=== PATIENT | female | born 1960 | race Caucasian/White ===

== ENCOUNTER 2020-10-20 08:40 | Outpatient (CLI) | payer BC, SELFPAY ==
[2020-10-20 09:10] LABS: Hematocrit 40.4 % (37.0-47.0); Hemoglobin 13.5 g/dL (12.0-15.0); Mean Corpuscular HGB Conc 33.4 g/dl (32-36); Mean Corpuscular Hemoglobin 30.1 pg (26-34); Mean Platelet Volume 9.1 fl (7.4-10.4); Platelet Count Result 289 k/mm3 (150-375); Red Blood Count 4.49 M/mm3 (4.2-5.4); Red Cell Distribution Width 12.2 % (11.5-14.5); White Blood Count 4.3 K/mm3 (4.5-10.0)
[2020-10-20 09:25] LABS: Alanine Aminotransferase 23 U/L (4-35); Albumin Level 4.8 g/dL (3.5-5.1); Alkaline Phosphatase 60 U/L (38-126); Anion Gap 8 mmol/L (8-16); Aspartate Amino Transferase 27 U/L (14-36); Bilirubin,Total 0.6 mg/dL (0.2-1.3); Blood Urea Nitrogen 17 mg/dL (7-17); Calcium 9.7 mg/dL (8.4-10.2); Carbon Dioxide 30 mmol/L (22-30); Chloride 100 mmol/L (98-107); Cholesterol 232 mg/dL (0-200); Estimated Glomerular Filt Rate > 60; Glucose 103 mg/dL (65-105); HDL Direct 51 mg/dL; Potassium 4.3 mmol/L (3.4-5.0); Sodium 138 mmol/L (137-145); Triglycerides 191 mg/dL (<150)
[2020-10-20 09:36] LABS: LDL Cholesterol Direct 120 mg/dL
[2020-10-20 10:04] LABS: Free T4 Free Thyroxine 1.22 ng/mL (0.78-2.19)
[2020-10-20 10:27] LABS: Folic Acid 7.4 ng/mL (2.76->20)
== END 2020-10-20 08:41 | disposition home or self-care (01) ==
PROVIDERS: PCP Internal Medicine; Visit Provider Physician Assistant
DX: Z00.00 Encounter for general adult medical examination without abnormal findings (principal); E03.9 Hypothyroidism, unspecified
CPT/HCPCS: 36415; 80053; 80061; 82607; 82746; 84439; 84443; 85027

== ENCOUNTER 2021-06-08 07:40 | Outpatient (CLI) | payer BC, SELFPAY ==
[2021-06-08 08:33] LABS: Alanine Aminotransferase 31 U/L (4-35); Albumin Level 4.9 g/dL (3.5-5.1); Alkaline Phosphatase 65 U/L (38-126); Anion Gap 11 mmol/L (8-16); Aspartate Amino Transferase 33 U/L (14-36); Bilirubin,Total 0.6 mg/dL (0.2-1.3); Blood Urea Nitrogen 17 mg/dL (7-17); Calcium 9.6 mg/dL (8.4-10.2); Carbon Dioxide 27 mmol/L (22-30); Chloride 99 mmol/L (98-107); Cholesterol 243 mg/dL (0-200); Estimated Glomerular Filt Rate > 60; Glucose 98 mg/dL (65-105); HDL Direct 75 mg/dL; Potassium 4.4 mmol/L (3.4-5.0); Sodium 137 mmol/L (137-145); Triglycerides 129 mg/dL (<150)
[2021-06-08 08:44] LABS: LDL Cholesterol Direct 100 mg/dL
== END 2021-06-08 07:41 | disposition home or self-care (01) ==
LOC: ANHLAB 07:41
PROVIDERS: PCP Internal Medicine; Visit Provider Internal Medicine
DX: E78.5 Hyperlipidemia, unspecified (principal)
CPT/HCPCS: 36415; 80053; 80061

== ENCOUNTER 2021-08-17 02:20 | Day surgery (SDC) | payer BC, SELFPAY ==
[2021-08-02 14:09] VITALS: BMI 22.1
[2021-08-17 06:57] VITALS: BP 135/81; PULSE 106; RESP 16; TEMP 37; O2SAT 100; BMI 23.8
[2021-08-17] MEDS: LACTATED RINGERS 1,000 ML 150 ML IV CONT (07:10)
--- NOTE | 2021-08-17 07:19 | WPDGICN ---
Assessment and Plan Assessment and plan (1) Gastroesophageal reflux disease: Code(s): K21.9 - Gastro-esophageal reflux disease without esophagitis Status: Acute Assessment and Plan: Patient has a longstanding history of GE reflux disease currently felt to be stable on omeprazole. Anti-reflux measures are reinforced to the patient today. EGD will be performed because of the chronicity of her symptoms. (2) Dysphagia: Code(s): R13.10 - Dysphagia, unspecified Status: Acute Assessment and Plan: Patient is notice some difficulty swallowing. Likely related to her GE reflux disease this will be assessed at the time of EGD. (3) History of colon polyps: Code(s): Z86.010 - Personal history of colonic polyps Status: Acute Assessment and Plan: Patient has a history of colon polyps in 2014. Plan is for surveillance colonoscopy at this time. Patient will be a little bit higher risk of recurrent colon polyps because of this. Follow-up colonoscopy is suggested about 5 year intervals. GI Consult Note Consult date/time: 08/17/21 07:19 HPI: Yulia Villagomez is a 61 year old female Presents for screening colonoscopy. She also has difficulty swallowing. Patient reports last colonoscopy [address] Hensley. At that time patient was found to have colon polyps. She reports that her current weight appetite and bowel movement so are normal. She denies abdominal pain. Follow-up colonoscopy is to be performed. Patient also has a longstanding history of GE reflux disease. She complains of substernal heartburn. She notes occasional slow passage of food predominantly more solid foods. She denies significant abdominal pain. She notices difficulty promptly if missing her dose medications. Currently she feels fairly stable on omeprazole 20mg p.o. daily has taken this for some time. An EGD will be performed today. Review of Systems Review of Systems: All systems reviewed & are unremarkable except as noted in HPI and below [facility] Family History Family History Mother Family history of elevated blood lipids Father Cerebrovascular accident, Onset Age: 78 Patient's father is Social History Social History Smoking status: Never smoker Second hand tobacco smoke exposure: No Alcohol intake: current Drinks per week: 3 Living arrangements: with family Spiritual care concerns: No Meds Home Medications and Allergies Home Medications Medication Instructions Recorded Confirmed Type lovastatin 10 mg tablet 10 mg PO QPM #90 tablet 11/10/20 08/02/21 Rx lisinopril 10 mg tablet 10 mg PO DAILY #90 tablet 06/12/21 08/02/21 Rx levothyroxine 50 mcg tablet 50 mcg PO DAILY #90 tablet 07/01/21 08/02/21 Rx omeprazole 20 mg capsule,delayed 20 mg PO DAILY #90 cap 07/29/21 08/02/21 Rx release venlafaxine 75 mg PO DAILY 08/02/21 08/02/21 History Allergies Allergy/AdvReac Type Severity Reaction Status Date / Time No Known Allergies Allergy Unknown Verified 08/17/21 06:56 NKFA Allergy Unknown Unknown Uncoded 08/02/21 14:07 Vital Signs Vital Signs - 24 hr 08/17/21 06:57 Temperature 98.6 F Pulse Rate 106 H Respiratory Rate 16 Blood Pressure 135/81 Pulse Oximetry 100 Exam Narrative: Physical exam reveals patient to be alert. Vital signs stable. HEENT exam is unremarkable. Patient is anicteric. Lungs are clear to auscultation and percussion. Heart is without murmur or extra sounds. Abdominal exam bowel sounds are present soft nontender with no organomegaly. Digital external rectal exam is normal.
--- NOTE | 2021-08-17 07:43 | WPDANESEPPF ---
Anes - Initial Pre Proc Eval Procedure: Operation Date: 08/17/21 08:00 Proposed Procedures p Esophagogastroduodenoscopy & Screening Colonoscopy - Charly Rivera MD Date/Time: 08/17/21 07:43 Surgeon: Charly Rivera MD Pre Op Diagnosis: dysphagia, neoplasm screening Patient Data Age: 61 Gender: F Height: 1.75 m Weight: 73 kg Last Vital Signs Temp 98.6 F 08/17/21 06:57 Pulse 106 H 08/17/21 06:57 Resp 16 08/17/21 06:57 BP 135/81 08/17/21 06:57 Pulse Ox 100 08/17/21 06:57 Allergies Allergy/AdvReac Type Severity Reaction Status Date / Time No Known Allergies Allergy Unknown Verified 08/17/21 06:56 NKFA Allergy Unknown Unknown Uncoded 08/02/21 14:07 Home Medications Medication Instructions Recorded Confirmed Type lovastatin 10 mg tablet 10 mg PO QPM #90 tablet 11/10/20 08/02/21 Rx lisinopril 10 mg tablet 10 mg PO DAILY #90 tablet 06/12/21 08/02/21 Rx levothyroxine 50 mcg tablet 50 mcg PO DAILY #90 tablet 07/01/21 08/02/21 Rx omeprazole 20 mg capsule,delayed 20 mg PO DAILY #90 cap 07/29/21 08/02/21 Rx release venlafaxine 75 mg PO DAILY 08/02/21 08/02/21 History Patient hx anesthesia problems: none Family hx anesthesia problems: none PMFSH Past Medical History Medical History (Updated 08/17/21 @ 07:43 by Ez Murray MD) Essential hypertension Gastroesophageal reflux disease Hyperlipidemia Hypothyroidism Family History Family History Mother Family history of elevated blood lipids Father Cerebrovascular accident, Onset Age: 78 Patient's father is Social History Social History Smoking status: Never smoker Second hand tobacco smoke exposure: No Alcohol intake: current Drinks per week: 3 Living arrangements: with family Spiritual care concerns: No Anes - Eval Final PreProcedure Day of Procedure 08/17/21 07:43 Patient weight: overweight Heart: regular rate and rhythm Lungs: clear to auscultation Airway: Mallampati scale class II Neurological: alert and oriented Last oral intake: >/= 8 hours ASA classification: III Emergent: no Anesthetic plan: proceed Anesthesia type and monitoring: general GIVS and standard monitoring Informed Consent: The patient's anesthetic plan and its attendant risks and benefits were discussed with the patient/family/POA. Questions were solicited and answers provided to the satisfaction of the patient/family/POA.
[2021-08-17 08:30] VITALS: BP 110/64; PULSE 89; RESP 18; O2SAT 100
[2021-08-17 08:40] VITALS: BP 110/66; PULSE 85; RESP 22; O2SAT 100
[2021-08-17 08:50] VITALS: BP 128/72; PULSE 84; RESP 22; O2SAT 100
[2021-08-17 08:58] VITALS: BP 126/73; PULSE 82; RESP 18; O2SAT 100
== END 2021-08-17 09:03 | disposition home or self-care (01) ==
PROVIDERS: PCP Internal Medicine; Visit Provider Internal Medicine Gastroenterology
PROC: 0DJ08ZZ Inspection of Upper Intestinal Tract, Via Natural or Artificial Opening Endoscopic (ICD-10-PCS; CPT 43235; principal; 2021-08-17 08:00)
DX: Z12.11 Encounter for screening for malignant neoplasm of colon (principal); D12.5 Benign neoplasm of sigmoid colon; R13.10 Dysphagia, unspecified; K21.9 Gastro-esophageal reflux disease without esophagitis; I10 Essential (primary) hypertension; E78.5 Hyperlipidemia, unspecified; E03.9 Hypothyroidism, unspecified
CPT/HCPCS: 45385; 43235; 43450; 88305; J2001; J2704; J7120

== ENCOUNTER 2022-02-10 16:28 | Emergency (ER) | payer BC, SELFPAY ==
[2022-02-10] VITALS (15 sets, daily range): BP systolic 120–178; BP diastolic 67–94; PULSE 79–138; RESP 12–20; TEMP 36.8–37.1; O2SAT 87–100
--- NOTE | ~2022-02-10 | XR_ITS ---
EXAMINATION: XR elbow LT 2V DATE: 02/10/2022 17:16 INDICATION: Left elbow pain, deformity and inability to straighten the elbow post fall TECHNIQUE: Anteroposterior and lateral views of the left elbow were obtained. COMPARISON: None. FINDINGS: Intra-articular transverse fracture across the base of the olecranon. The proximal olecranon fragment is positioned along the posterior articular surface of the trochlea has with the arm in full extensi on. The radius and more distal ulna are again 115 degrees of flexion and are also anterior subluxed r elative to the articular surface of the capitellum and trochlea with widening of the anterior joint s paces. There also appears to be medial subluxation, potentially dislocation of the radius and ulna on the frontal projection. No other fractures identified. Prominent soft tissue swelling about the elbo w. IMPRESSION: 1. Intra-articular fracture olecranon with displacement and subluxation cannot dislocation at both th e radius and more distal ulna at the elbow joint. Reviewed, dictated and finalized at location A. IMPRESSION: 1. Intra-articular fracture olecranon with displacement and subluxation cannot dislocation at both the radius and more distal ulna at the elbow joint.
--- NOTE | ~2022-02-10 | XR_ITS ---
EXAMINATION: XR pelvis 1-2V DATE: 02/10/2022 17:16 INDICATION: Fall with pelvic pain TECHNIQUE: An anteroposterior view of the pelvis was obtained. COMPARISON: 07/17/2004 FINDINGS: Minimally displaced fracture of the left superior and inferior pubic rami. Alignment remains near-dafne tomic. No other fractures identified. Bilateral hip joint spaces appear normal. Mild bilateral sacroi liac osteoarthritis. Sacral arches are intact. A few phleboliths in the pelvis. IMPRESSION: 1. Minimally displaced fractures of the left superior and inferior pubic rami. Reviewed, dictated and finalized at location A.
--- NOTE | ~2022-02-10 | XR_ITS ---
EXAMINATION: XR elbow LT min 3V DATE: 02/10/2022 20:31 INDICATION: Postreduction left elbow fracture TECHNIQUE: Anteroposterior and lateral views of the left elbow were obtained. COMPARISON: 02/10/2022 FINDINGS: Again seen is an intra-articular transverse fracture across the base of the olecranon. There is also a nondisplaced fracture extra-articular fracture across the neck of the proximal radius. The volar escobar bluxation of the radius and main distal ulnar fragment has been reduced to near-anatomic alignment. T here is persistent 2.5 cm proximal rotational distraction of the proximal olecranon fragment along th e articular surface of the trochlea with fragment positioned in the olecranon fossa as would be expec rhonda with the elbow in complete extension despite the forearm being in and 105 degrees of flexion. Sof t tissue swelling about the proximal forearm and elbow. IMPRESSION: 1. Nondisplaced extra articular fracture at the neck of the proximal left radius. 2. Intra-articular fracture across the base of the olecranon process with persistent distraction. 3. Successful reduction of the previously subluxed radiocapitellar articulation and the articulating between the trochlea and the main distal ulnar fragment. Reviewed, dictated and finalized at location A. IMPRESSION: 1. Nondisplaced extra articular fracture at the neck of the proximal left radiu s. 2. Intra-articular fracture across the base of the olecranon process with persi stent distraction. 3. Successful reduction of the previously subluxed radiocapitellar articulation and the articulating between the trochlea and the main distal ulnar fragment.
--- NOTE | ~2022-02-10 | CT_ITS ---
EXAMINATION: CT abdomen pelvis w con DATE: 02/10/2022 18:58 INDICATION: Lower abdominal pain post fall TECHNIQUE: Computed tomography (CT) of the abdomen and pelvis was performed with 100 mL Omnipaque-350 intravenous contrast. Automated exposure control and iterative reconstruction technique were employe d. The dose-length product was 656.17 mGy-cm. COMPARISON: None FINDINGS: Mild dependent atelectasis in the bilateral lower lobes. Heart size is normal. No pericardial or pleu ral effusion. Bilateral breast implants. Liver, gallbladder, spleen, pancreas, bilateral adrenal glan ds and kidneys are normal. Davidson catheter in the decompressed bladder. Bowels are unremarkable with n o wall thickening or obstruction. The appendix is not visualized. No pericecal inflammatory change to suggest acute appendicitis. The uterus is not identified and has likely been surgically resected. No free intraperitoneal gas or fluid. Bilateral adnexa are unremarkable. No free intraperitoneal gas or fluid. No pathologically enlarged abdominal or pelvic lymphadenopathy. Nondisplaced fracture of the left inferior pubic ramus. Mildly displaced fracture of the left superior pubic ramus. No other fract ures identified. IMPRESSION: 1. Left superior and inferior pubic rami fractures. 2. No acute intra-abdominal/pelvic process. Reviewed, dictated and finalized at location A.
--- NOTE | 2022-02-10 17:52 | WC.ED.TRAUMA ---
HPI - Trauma General Chief Complaint: Extremity Injury, Upper <Gagandeep Martin APRN - Last Filed: 02/10/22 20:38> Stated Complaint: Fall <Gagandeep Martin APRN - Last Filed: 02/10/22 20:38> Time Seen by Provider: 02/10/22 17:08 <Gagandeep Martin APRN - Last Filed: 02/10/22 20:38> History of Present Illness HPI narrative: 62-year-old female presents the emergency room after a mechanical fall while at home. Patient states that she slipped and fell landing on her left elbow and left hip. Patient states that she was unable to walk following the incident, and noticed a of obvious bony abnormality to the left elbow. <Gagandeep Martin APRN - Last Filed: 02/10/22 20:38> Related Data Home Medications: Home Medications Medication Instructions Recorded Confirmed venlafaxine 75 mg PO DAILY 08/02/21 08/02/21 <Gagandeep Martin APRN - Last Filed: 02/10/22 20:38> Allergies/Adverse Reactions: Allergies Allergy/AdvReac Type Severity Reaction Status Date / Time No Known Allergies Allergy Unknown Verified 02/10/22 16:49 NKFA Allergy Unknown Unknown Uncoded 08/02/21 14:07 <Gagandeep Martin APRN - Last Filed: 02/10/22 20:38> Review of Systems Review of Systems: CONSTITUTIONAL: Denies fever, chills, or sweats. EYES: Denies visual changes, redness, or discharge. ENT: Denies rhinorrhea, congestion, sore throat, or otalgia. CARDIOVASCULAR: Denies chest pain, palpitations, or edema. RESPIRATORY: Denies cough or dyspnea. GASTROINTESTINAL: Reports lower abdominal pain GENITOURINARY: Denies dysuria or hematuria. SKIN: Denies rash or itching. MUSCULOSKELETAL: Pain to the symphysis pubis and left elbow NEUROLOGIC: Denies headache, numbness, dizziness, or weakness. PSYCHIATRIC: Denies anxiety or depression. <Gagandeep Martin APRN - Last Filed: 02/10/22 20:38> PMFSH Past Medical History Medical History: Medical History Essential hypertension Gastroesophageal reflux disease Hyperlipidemia Hypothyroidism <Gagandeep Martin APRN - Last Filed: 02/10/22 20:38> Family History Family History: Family History Mother Family history of elevated blood lipids Father Cerebrovascular accident, Onset Age: 78 Patient's father is <Gagandeep Martin APRN - Last Filed: 02/10/22 20:38> Social History Social History: Social History Smoking status: Never smoker Second hand tobacco smoke exposure: No Alcohol intake: current Drinks per week: 3 Spiritual care concerns: No <Gagandeep Martin APRN - Last Filed: 02/10/22 20:38> Exam Narrative: GENERAL: Well-appearing, well-nourished, and in no acute distress. HEAD: Normocephalic, atraumatic. EYES: PERRLA and EOMI. ENT: Nares clear, no rhinorrhea or epistaxis. Mucous membranes moist. NECK: Supple. No adenopathy or masses. No carotid bruits or JVD CHEST: Clear to auscultation. No respiratory distress. No wheezes rales or rhonchi HEART: Regular rate and rhythm. No murmur heard. Normal peripheral pulses. ABDOMEN: Lower abdominal tenderness, with ecchymosis EXTREMITIES: Left elbow: Obvious bony abnormality, tenderness to the olecranon process, and medial lateral epicondyles. No range of motion. Radial pulse present. Travel Writer equal. Neurovascular is distally intact to the injury SKIN: Warm, dry, no rash. NEURO: No focal deficits. Alert and oriented x3. PSYCH: Normal mood and affect. <Gagandeep Martin APRN - Last Filed: 02/10/22 20:38> Course Course Emergency Course: 1899: Spoke to Dr. Gonzalez, [facility] emergency room. She will be the accepting physician. 2024: Dr. Larose at bedside to assist with reduction. Patient given 150 mg of ketamine for induction. <Gagandeep Martin APRN - Last Filed: 02/10/22 20:38> RUG TOUCH UP PAINTER/PA Physician Supervision I saw and chuck
[2022-02-10] MEDS: SODIUM CHLORIDE 0.9% IV 1,000 ML 150 ML IV CONT (18:06)
[2022-02-10] MEDS: ONDANSETRON INJ 4 MG/2 ML VIAL IV PUSH (18:06)
[2022-02-10] MEDS: MORPHINE SULFATE (*CRX) 4 MG/ML INJ IV PUSH (18:06)
[2022-02-10 18:07] LABS: Basophils Absolute Auto 0.1 K/mm3 (0.0-0.1); Basophils Percent Auto 0.5 % (0.2-1.2); Eosinophils Percent Auto 0.3 % (0-4.4); Hematocrit 35.2 % (37.0-47.0); Hemoglobin 11.6 g/dL (12.0-15.0); Immature Granulocyte Absolute 0.06 K/mm3 (0.00-0.031); Immature Granulocyte Percent A 0.5 % (0-0.5); Lymphocytes Absolute Auto 1.03 K/mm3 (0.9-3.2); Lymphocytes Percent Auto 9.4 % (18.3-44.2); Mean Corpuscular Hemoglobin 30.8 pg (26-34); Mean Corpuscular Volume 93.4 fl (80-100); Mean Platelet Volume 8.8 fl (7.4-10.4); Monocytes Absolute Auto 0.6 K/mm3 (0.1-0.6); Monocytes Percent Auto 5.4 % (2.6-8.5); Neutrophils Absolute Auto 9.2 K/mm3 (1.3-6.7); Neutrophils Percent Auto 83.9 % (45.5-73.1); Platelet Count Result 269 k/mm3 (150-375); Red Blood Count 3.77 M/mm3 (4.2-5.4); Red Cell Distribution Width 12.4 % (11.5-14.5)
[2022-02-10 18:18] LABS: Alanine Aminotransferase 29 U/L (4-35); Albumin Level 4.7 g/dL (3.5-5.1); Alkaline Phosphatase 83 U/L (38-126); Anion Gap 7 mmol/L (8-16); Aspartate Amino Transferase 34 U/L (14-36); Bilirubin,Total 0.4 mg/dL (0.2-1.3); Blood Urea Nitrogen 17 mg/dL (7-17); Calcium 8.9 mg/dL (8.4-10.2); Carbon Dioxide 28 mmol/L (22-30); Chloride 100 mmol/L (98-107); Estimated Glomerular Filt Rate > 60; Glucose 138 mg/dL (65-110); Potassium 3.7 mmol/L (3.4-5.0); Sodium 135 mmol/L (137-145)
[2022-02-10 18:33] LABS: Prothrombin Time 12.5 Seconds (11.1-14.7)
[2022-02-10 18:34] LABS: Partial Thromboplastin Time 20.7 SECONDS (22.3-36.8)
--- NOTE | 2022-02-10 18:38 | PC.NURSE ---
Patient to radiology.
[2022-02-10 18:47] LABS: Add Urine Microscopic? YES; Appearance Urine Cloudy (Clear); Bacteria Urine Trace /hpf; Bilirubin Urine Negative (Negative); Blood Urine 1+ (Negative); Color Urine Yellow (Yellow); Glucose Urine UA Negative (Negative); Ketones Urine Negative (Negative); Leukocyte Esterase Ur Negative LEU/UL (Negative); Mucus Urine Rare /lpf; Nitrate Urine Negative (Negative); Protein Urine Negative (Negative); RBC Urine >75 /hpf (0-2); Specific Grav Ur 1.018 (1.001-1.035); Squamous Epithelial Cell Urine Rare /hpf (Few); Urobilinogen Urine Negative mg/dL (<2.0); WBC Urine 0-3 /hpf
--- NOTE | 2022-02-10 19:12 | PC.NURSE ---
Assumed care of pt at this time. Pt alert, supine on stretcher, fluids infusing. Pt updated on POC.
--- NOTE | 2022-02-10 20:36 | PC.NURSE ---
Report to DINO Centeno at [facility] @ [phone]. Splinting in progress s/p unsuccessful reduction by ED MD Larose and Angel HYATT.
--- NOTE | 2022-02-10 20:45 | PC.NURSE ---
Aggarwal ETA approx 2100.
== END 2022-02-10 21:10 | disposition short-term general hospital (02) ==
PROVIDERS: Emergency Provider Nurse Practitioner Family; PCP Internal Medicine
DX: S52.032A Displaced fracture of olecranon process with intraarticular extension of left ulna, initial encounter for closed fracture (principal); S32.592A Other specified fracture of left pubis, initial encounter for closed fracture; I10 Essential (primary) hypertension; K21.9 Gastro-esophageal reflux disease without esophagitis; E78.5 Hyperlipidemia, unspecified; E03.9 Hypothyroidism, unspecified; W01.0XXA Fall on same level from slipping, tripping and stumbling without subsequent striking against object, initial encounter
CPT/HCPCS: 11720; 24535; 24675; 36415; 72170; 73070; 73080; 74177; 80053; 81001; 85025; 85610; 85730; 96374; 96375; 99285; J2270; J2405; J7030; Q9967

== ENCOUNTER 2022-05-31 10:07 | Outpatient (CLI) | payer BC, SELFPAY ==
[2022-05-31 11:24] LABS: Basophils Absolute Auto 0.1 K/mm3 (0.0-0.1); Eosinophils Absolute Auto 0.3 K/mm3 (0-0.3); Eosinophils Percent Auto 5.8 % (0-4.4); Hematocrit 37.2 % (37.0-47.0); Hemoglobin 11.9 g/dL (12.0-15.0); Immature Granulocyte Absolute 0.01 K/mm3 (0.00-0.031); Immature Granulocyte Percent A 0.2 % (0-0.5); Lymphocytes Absolute Auto 1.28 K/mm3 (0.9-3.2); Lymphocytes Percent Auto 28.8 % (18.3-44.2); Mean Corpuscular Hemoglobin 29.1 pg (26-34); Mean Platelet Volume 9.5 fl (7.4-10.4); Monocytes Absolute Auto 0.5 K/mm3 (0.1-0.6); Monocytes Percent Auto 10.1 % (2.6-8.5); Neutrophils Absolute Auto 2.4 K/mm3 (1.3-6.7); Neutrophils Percent Auto 53.1 % (45.5-73.1); Platelet Count Result 309 k/mm3 (150-375); Red Blood Count 4.09 M/mm3 (4.2-5.4); Red Cell Distribution Width 13.9 % (11.5-14.5); White Blood Count 4.5 K/mm3 (4.5-10.0)
[2022-05-31 11:56] LABS: Iron 66 ug/dL (37-170)
[2022-05-31 11:59] LABS: Alanine Aminotransferase 26 U/L (6-35); Albumin Level 4.7 g/dL (3.5-5.1); Alkaline Phosphatase 88 U/L (38-126); Anion Gap 9 mmol/L (8-16); Aspartate Amino Transferase 27 U/L (14-36); Bilirubin,Total 0.3 mg/dL (0.2-1.3); Blood Urea Nitrogen 18 mg/dL (7-17); Carbon Dioxide 29 mmol/L (22-30); Chloride 101 mmol/L (98-107); Cholesterol 240 mg/dL (0-200); Estimated Glomerular Filt Rate > 60; Glucose 96 mg/dL (65-110); HDL Direct 62 mg/dL; LDL Cholesterol Direct 118 mg/dL; Potassium 4.4 mmol/L (3.4-5.0); Sodium 139 mmol/L (137-145); Triglycerides 118 mg/dL (<150)
[2022-05-31 12:05] LABS: Percent Iron Saturation 16 % (20-50)
[2022-05-31 12:55] LABS: Folic Acid 4.5 ng/mL (2.76->20)
== END 2022-05-31 10:08 | disposition home or self-care (01) ==
LOC: ANHLAB 10:10
PROVIDERS: PCP Internal Medicine; Visit Provider Internal Medicine
DX: Z00.00 Encounter for general adult medical examination without abnormal findings (principal); D64.9 Anemia, unspecified
CPT/HCPCS: 36415; 80053; 80061; 82607; 82746; 83540; 83550; 84443; 85025

== ENCOUNTER 2022-06-10 12:30 | Outpatient (RCR) | payer BC, SELFPAY ==
--- NOTE | 2022-03-13 10:14 | OTOPEVAL ---
OCCUPATIONAL THERAPY INITIAL EVALUATION REPORT 03/13/22 Thank you for referring Yulia Villagomez to [facility].? The patient is scheduled to be seen for therapy? 2x/week for 4 weeks. Please review, sign, date and return this plan of care ROSSI. I agree with and certify that the following plan of care is medically necessary. Referring Physician Date Referring Provider: Chad Zuñiga MD *OT Outpatient Evaluation Start: 03/13/22 08:58 Neurological History Hx Neurological Disorders No Significant History Cardiovascular History Hx Hypercholesterolemia Yes Hx Hypertension Yes Respiratory History Hx Respiratory Disorders No Significant History Gastrointestinal History Hx Gastroesophageal Reflux Disease Yes Genitourinary History Hx Genitourinary Disorders No Significant History Musculoskeletal History Hx Fractures Yes: Left elbow and pelvis from fall 02/10/22 Hx Orthopedic Surgery Yes: Left elbow ORIF 02/11/22 Hematological History Hx Hematological Disorders No Significant History Endocrine History Hx Hypothyroidism Yes HEENT History Hx HEENT Disorders No Significant History Integumentary History Hx Skin Disorders No Significant History Psychosocial History Hx Anxiety Yes Anesthesia History Hx Anesthesia Reactions No Significant History Evaluation Information Problem Diagnosis Olecranon fracture s/p ORIF 02/11/22 Cause Fall Subjective Information Patient fell and sustained a Query Text:As Reported By Patient/ left elbow fracture and pelvic Family fracture. The left elbow underwent an ORIF on 02/11/22. Following surgery she wore a cast x3 weeks which immobilized the elbow, forearm , and wrist. She reports difficulties with being able to do her hair and lift items with both hands. She has been heavily favoring the right hand. She lives at home with her who is helping with housework. Prior Level of Function Activity Level (Last 3 Months) Occupation Works in [employer] Hand Dominance Right Activity of Daily Living Ability Independent Shopping Yes Driving Yes Pain Assessment Timing of Pain Assessment Timing of Pain Assessment Assessment Pain Scale Pain Scale Used Numeric (1 - 10) Self Report Pain Assessment Pelvis Reported Pain Level 2 P
--- NOTE | 2022-04-04 08:55 | PCOTNOTE ---
Patient called & cancelled scheduled appointment this date.
--- NOTE | 2022-04-17 11:04 | OTOPEVAL ---
OCCUPATIONAL THERAPY RE-EVALUATION REPORT AND PLAN OF CARE UPDATE 04/17/22 Patient presents today, 9 weeks post ORIF of left olecranon fx, for OT re-evaluation. She has attended 6 therapy sessions and has been very compliant with all home exercises. As described above, she has been making slow, steady gains in functional ROM of the left elbow. She continues to be fairly stiff with end range tightness at 115* flexion and -35* extension. She will greatly benefit from continued skilled OT to progress HEP and therapeutic activities as well as for dynamic splinting for elbow flexion and extension for optimal functional ROM results. Thank you for referring Yulia Villagomez to [facility].? The patient is scheduled to be seen for therapy? 1x/week for 4 weeks. Please review, sign, date and return this plan of care ROSSI. I agree with and certify that the following plan of care is medically necessary. Referring Physician Date Referring Provider: Chad Zuñiga MD Re-Evaluation Information Problem Diagnosis Olecranon fracture s/p ORIF 02/11/22 Cause Fall Subjective Information Patient reports that since Query Text:As Reported By Patient/ beginning therapy she has Family noticed improvements with functional ROM and the arm feels less tender . She is now able to reach her hair to pull it into a ponytail. She is also now able to put in earrings and clasping necklaces. She is doing more in the kitchen with cooking and using her left hand more. She does report some residual end range stiffness that limits her full elbow flexion and extension, which makes ADLs and household tasks a little slower . She is unable to reach her upper back/ cervical area with the left hand at this time. She is also not back to doing any heavy lifting, relying on her for this right now. Pain Assessment Timing of Pain Assessment Timing of Pain Assessment Re-assessment Pain Scale Pain Scale Used Numeric (1 - 10) Self Report Pain Assessment Left Elbow(s) Reported Pain Level 0 Lowest Pain Intensity 0 Greatest Pain Intensity 3 Pain Score Pain Score 0: Self Report Interventions Used Interventions Used By Clinicians Education,Exercise Upper Extremity Range of Motion Elbow/Forearm Range of Motion Left Elbow Flexion - Active 115 Elbow Flexion - Passive 125 Elbow Exten
--- NOTE | 2022-05-15 15:49 | OTOPEVAL ---
OCCUPATIONAL THERAPY RE-EVALUATION REPORT AND POC UPDATE 05/15/22 Patient presents today, 13 weeks post ORIF of left olecranon fx, for OT re-evaluation. She has attended 12 therapy sessions and has been very compliant with all home exercises. As described above, she has been making slow, steady gains in functional ROM of the left elbow. She continues to be fairly stiff with end range tightness at 120* flexion and -30* extension (which has improved from 115* flexion and -35* extension). She has only been wearing her dynamic orthotic x1 week at this time. She will greatly benefit from continued skilled OT to progress HEP and therapeutic activities for optimal functional ROM results. Thank you for referring Yulia Villagomez to [facility].? The patient is scheduled to be seen for therapy? 1x/week for 4 weeks. Please review, sign, date and return this plan of care ROSSI. I agree with and certify that the following plan of care is medically necessary. Referring Physician Date Referring Provider: Chad Zuñiga MD Evaluation Information Diagnosis Olecranon fracture s/p ORIF 02/11/22 Cause Fall Subjective Information Patient reports in the last Query Text:As Reported By Patient/ month she has noticed progress Family with being able to lift heavier objects and relying less on her for lifting. She has been utilizing a dynamic splinting brace for both flexion and extension x1 week. Pain Assessment Timing of Pain Assessment Timing of Pain Assessment Re-assessment Pain Scale Pain Scale Used Numeric (1 - 10) Self Report Pain Assessment Left Elbow(s) Reported Pain Level 0 Greatest Pain Intensity 4 Pain Score Pain Score 0: Self Report Interventions Used Interventions Used By Clinicians Education,Exercise Upper Extremity Range of Motion Elbow/Forearm Range of Motion Left Elbow Flexion - Active 120 Elbow Flexion - Passive 130 Elbow Extension - Active -30 Elbow Extension - Passive -25 Forearm Supination - Active 80 Forearm Pronation - Active 75 Elbow/Forearm Range of Motion Comments Measurements from 03/13/22: Elbow flexion 100* Elbow extension -50* Supination 50* Pronation 60* Measurements from 04/17/22: Elbow flexion 115* Elbow extension -35* Supination 75* Pronation 75* Wrist Range of Motion Left Wrist Flexion - Active 70 Wrist Extension - Active 50 Hand Nutrition Professor/Pinch Strength Assessment Hand Left Nutrition Professor Strength (lbs) 52 Hand Nutrition Professor/Pinch Strength Comments Improved from 4
--- NOTE | 2022-06-10 13:50 | OTOPEVAL ---
OCCUPATIONAL THERAPY RE-EVALUATION REPORT AND POC UPDATE 06/10/22 Patient presents today, 17 weeks post ORIF of left olecranon fx, for OT re-evaluation. She has been very compliant with all home exercises and dynamic splinting compliance. She has been making slow, steady gains in functional ROM of the left elbow. She continues to be fairly stiff with end range tightness at 125 degrees flexion and -30 degrees extension (which has improved from 120 degrees flexion, but unfortunately extension has remained unchanged in the last 4 weeks). She has been wearing her dynamic orthotic x4 weeks at this time. At this time we discussed having the patient continue to complete her home program independently x4 weeks and to follow up for a re-evaluation at that time. Plan to have her follow up within that months time on an as needed basis for any dynamic splinting help if she comes across any issues, otherwise she is currently independent with all materials. Thank you for referring Yulia Villagomez to [facility].? The patient is scheduled to be seen for therapy? 0-1x/week for 4 weeks. Please review, sign, date and return this plan of care ROSSI. I agree with and certify that the following plan of care is medically necessary. Referring Physician Date Referring Provider: Chad Zuñiga *OT Outpatient Re-Evaluation Diagnosis Olecranon fracture s/p ORIF 02/11/22 Cause Fall Subjective Information Patient reports in the last Query Text:As Reported By Patient/ month she has noticed progress Family with being able to lift heavier objects and improved flexibility with elbow flexion which has allowed her to don necklaces easier. She has been utilizing a dynamic splinting brace for both flexion and extension x4.5 weeks. Pain Assessment Timing of Pain Assessment Timing of Pain Assessment Re-assessment Pain Scale Pain Scale Used Numeric (1 - 10) Self Report Pain Assessment Left Elbow(s) Reported Pain Level 0 Lowest Pain Intensity 0 Greatest Pain Intensity 3 Pain Score Pain Score 0: Self Report Upper Extremity Range of Motion Elbow/Forearm Range of Motion Left Elbow Flexion - Active 125 Elbow Flexion - Passive 140 Elbow Extension - Active -30 Elbow Extension - Passive -30 Forearm Supination - Active 80 Forearm Pronation - Active 75 Elbow/Forearm Range of Motion Comments Measurements from 03/13/22: Elbow flexion 100* Elbow extension -50* Supination 50* Pronation 60* Measurements from 04/17/22: Elbow flexion 115* Elbow extension -35* Supination 75*
--- NOTE | 2022-06-13 08:55 | PCOTNOTE ---
This treatment is being continued on visit number [id number]. Please see documentation on both accounts to view progress. Completed interventions, outcomes, and problems have been marked as Inactive to facilitate the copying of the Care plan routine for recurring accounts.
== END 2022-06-11 23:59 | disposition home or self-care (01) ==
LOC: ANHOT 12:30
PROVIDERS: PCP Internal Medicine
DX: S52.022A Displaced fracture of olecranon process without intraarticular extension of left ulna, initial encounter for closed fracture (principal)
CPT/HCPCS: 97018; 97110; 97140; 97165; 97763

== ENCOUNTER → 2022-07-26 11:04 | Outpatient (CLI) | payer BC, SELFPAY ==
--- NOTE | ~2022-07-26 | DEXA_ITS ---
Bone Density Report Name: [facility] Age: 62 Sex: Female Ethnicity: White Date of : 1960 Indication: osteopenia; prior fracture; hysterectomy; postmenopausal Referring Provider: TAINA APPIAH D.O. Study: Bone densitometry was performed. Exam Date: July 26, 2022 Accession number: [id number] Bone Density: Region BMD T-score Z-score Classification AP Spine (L1-L4) 0.931 -1.1 0.5 Osteopenia Femoral Neck (Left) 0.621 -2.1 -0.7 Osteopenia Total Hip (Left) 0.839 -0.8 0.2 Normal Femoral Neck (Right) 0.673 -1.6 -0.2 Osteopenia Total Hip (Right) 0.830 -0.9 0.1 Normal Total Hip Mean 0.835 -0.9 0.2 Normal World Health Organization criteria for BMD impression classify patients as: Normal (T-score at or above -1.0), Osteopenia (T-score between -1.0 and -2.5), or Osteoporosis (T-score at or below -2.5). 10-year Fracture Risk: FRAX not reported because: Prior hip or vertebral fracture Previous Exams: Region Exam Age BMD T-score BMD Change BMD Change Date g/cm2 vs Baseline vs Previous AP Spine(L1-L4) 07/26/2022 62 0.931 -1.1 -0.087* -0.087* 09/12/2010 50 1.019 -0.3 Total Hip(Left) 07/26/2022 62 0.839 -0.8 0.037* 0.037* 09/12/2010 50 0.802 -1.1 Total Hip(Right) 07/26/2022 62 0.830 -0.9 0.028* 0.028* 09/12/2010 50 0.801 -1.2 *Denotes significance at 95% confidence level, LSC for AP Spine = 0.022 g/cm2, LSC for Total Hip = 0.027 g/cm2 Clinical Information Provided by Patient: Have had a previous hip or vertebral fracture Has had a low trauma fracture Has the following medical conditions: Hysterectomy Patient maximum height was 69.8 Menopause Age: 43 No regular weight bearing exercise Does not regularly consume dairy products Drinks caffeinated beverages Onset of menses at age 13 Number of children 3 Impression: The patient has low bone mass, based on the Left Femoral Neck T-score. The patient has risk factors, including: previous fracture. The BMD for the AP Spine(L1-L4) decreased, changing by -0.087 since the last DXA exam. Discussion: INCREASED RISK OF FRACTURE DUE TO HISTORY OF FRACTURE. The patient's previous fracture puts the patient at high risk of a future fracture. In untreated patients, the risk of osteoporotic fracture increases approximately two-fold for each 1.0 SD decrease in T-score. Low bone density is not the only risk factor for fracture; also consider factors
== END ==
PROVIDERS: PCP Internal Medicine; Visit Provider Internal Medicine
DX: Z78.0 Asymptomatic menopausal state (principal); M85.88 Other specified disorders of bone density and structure, other site; M85.852 Other specified disorders of bone density and structure, left thigh; M85.851 Other specified disorders of bone density and structure, right thigh
CPT/HCPCS: 77080

== ENCOUNTER 2022-11-27 11:05 | Outpatient (RCR) | payer BC, SELFPAY ==
--- NOTE | 2022-06-13 08:56 | PCOTNOTE ---
The treatment documented on this account is a continuation of the treatment documented on visit number [id number]. Please see documentation on both accounts to view progress. The Plan of Care has been transitioned and updated within the new V#. I have addressed and agree with the discipline specific Problems, Interventions, and Goals for the current certification period. Completed interventions, outcomes, and problems have been marked as Inactive to facilitate the copying of the Care plan routine for recurring accounts.
--- NOTE | 2022-07-09 10:23 | PCOTNOTE ---
OCCUPATIONAL THERAPY D/C NOTIFICATION 07/09/22 Patient:Yulia Villagomez Date of :1960 Yulia called and cancelled her remaining therapy appointment as she was released from her MD. Her last appointment was on 06/10/22 - please refer to that progress note for most recent patient progress and updates. The goals have been partially met. She was independent with all HEPs. Thank you for referring this patient to [facility]. Please review, sign, date and return this discharge summary ROSSI. I have been updated about the patient's current status and I agree with discharge from the above service at this time. Referring Physician Date Attending Provider: Chad Zuñiga MD
== END 2022-11-27 11:06 | disposition home or self-care (01) ==
LOC: ANHOT 11:05
PROVIDERS: PCP Internal Medicine
DX: S52.022A Displaced fracture of olecranon process without intraarticular extension of left ulna, initial encounter for closed fracture (principal)
CPT/HCPCS: 99199

== ENCOUNTER 2022-11-28 09:08 | Outpatient (CLI) | payer BC, SELFPAY ==
[2022-11-29 10:45] LABS: Basophils Absolute Auto 0.1 K/mm3 (0.0-0.1); Basophils Percent Auto 1.2 % (0.2-1.2); Eosinophils Absolute Auto 0.2 K/mm3 (0-0.3); Eosinophils Percent Auto 3.4 % (0-4.4); Hematocrit 39.3 % (37.0-47.0); Hemoglobin 12.7 g/dL (12.0-15.0); Immature Granulocyte Absolute 0.03 K/mm3 (0.00-0.031); Immature Granulocyte Percent A 0.6 % (0-0.5); Lymphocytes Absolute Auto 1.17 K/mm3 (0.9-3.2); Lymphocytes Percent Auto 23.6 % (18.3-44.2); Mean Corpuscular HGB Conc 32.3 g/dl (32-36); Mean Corpuscular Hemoglobin 29.8 pg (26-34); Mean Corpuscular Volume 92.3 fl (80-100); Mean Platelet Volume 9.6 fl (7.4-10.4); Monocytes Absolute Auto 0.4 K/mm3 (0.1-0.6); Monocytes Percent Auto 8.9 % (2.6-8.5); Neutrophils Absolute Auto 3.1 K/mm3 (1.3-6.7); Neutrophils Percent Auto 62.3 % (45.5-73.1); Platelet Count Result 293 k/mm3 (150-375); Red Blood Count 4.26 M/mm3 (4.2-5.4); Red Cell Distribution Width 12.9 % (11.5-14.5)
[2022-11-29 10:53] LABS: Alanine Aminotransferase 36 U/L (6-35); Albumin Level 4.7 g/dL (3.5-5.1); Alkaline Phosphatase 82 U/L (38-126); Anion Gap 10 mmol/L (8-16); Aspartate Amino Transferase 35 U/L (14-36); Bilirubin,Total 0.6 mg/dL (0.2-1.3); Blood Urea Nitrogen 17 mg/dL (7-17); Calcium 9.1 mg/dL (8.4-10.2); Carbon Dioxide 26 mmol/L (22-30); Chloride 104 mmol/L (98-107); Cholesterol 277 mg/dL (0-200); Estimated Glomerular Filt Rate > 60; Glucose 104 mg/dL (65-110); HDL Direct 63 mg/dL; Potassium 4.3 mmol/L (3.4-5.0); Sodium 140 mmol/L (137-145); Triglycerides 205 mg/dL (<150)
[2022-11-29 11:00] LABS: Iron 89 ug/dL (37-170)
[2022-11-29 11:04] LABS: LDL Cholesterol Direct 129 mg/dL
[2022-11-29 11:13] LABS: Percent Iron Saturation 21 % (20-50)
== END 2022-11-28 09:09 | disposition home or self-care (01) ==
LOC: ANHGOSHLAB 09:09
PROVIDERS: PCP Internal Medicine; Visit Provider Internal Medicine
DX: D64.9 Anemia, unspecified (principal); E78.5 Hyperlipidemia, unspecified
CPT/HCPCS: 36415; 80053; 80061; 83540; 83550; 85025

== ENCOUNTER 2023-06-07 09:48 | Outpatient (CLI) | payer BC, SELFPAY ==
[2023-06-07 10:17] LABS: Basophils Absolute Auto 0.1 K/mm3 (0.0-0.1); Basophils Percent Auto 1.3 % (0.2-1.2); Eosinophils Absolute Auto 0.1 K/mm3 (0-0.3); Eosinophils Percent Auto 2.2 % (0-4.4); Hematocrit 42.3 % (37.0-47.0); Hemoglobin 13.8 g/dL (12.0-15.0); Immature Granulocyte Absolute 0.02 K/mm3 (0.00-0.031); Immature Granulocyte Percent A 0.4 % (0-0.5); Lymphocytes Absolute Auto 1.38 K/mm3 (0.9-3.2); Lymphocytes Percent Auto 25.6 % (18.3-44.2); Mean Corpuscular HGB Conc 32.6 g/dl (32-36); Mean Corpuscular Hemoglobin 30.1 pg (26-34); Mean Corpuscular Volume 92.4 fl (80-100); Mean Platelet Volume 8.7 fl (7.4-10.4); Monocytes Absolute Auto 0.4 K/mm3 (0.1-0.6); Neutrophils Absolute Auto 3.4 K/mm3 (1.3-6.7); Neutrophils Percent Auto 62.5 % (45.5-73.1); Platelet Count Result 305 k/mm3 (150-375); Red Blood Count 4.58 M/mm3 (4.2-5.4); Red Cell Distribution Width 13.2 % (11.5-14.5); White Blood Count 5.4 K/mm3 (4.5-10.0)
[2023-06-07 10:46] LABS: Alanine Aminotransferase 45 U/L (6-35); Albumin Level 5.3 g/dL (3.5-5.1); Alkaline Phosphatase 95 U/L (38-126); Anion Gap 12 mmol/L (8-16); Aspartate Amino Transferase 35 U/L (14-36); Bilirubin,Total 0.9 mg/dL (0.2-1.3); Blood Urea Nitrogen 21 mg/dL (7-17); Calcium 9.8 mg/dL (8.4-10.2); Carbon Dioxide 25 mmol/L (22-30); Chloride 101 mmol/L (98-107); Cholesterol 266 mg/dL (0-200); Estimated Glomerular Filt Rate > 60; Glucose 97 mg/dL (65-110); HDL Direct 83 mg/dL; Potassium 4.5 mmol/L (3.4-5.0); Sodium 138 mmol/L (137-145); Triglycerides 205 mg/dL (<150)
[2023-06-07 10:49] LABS: Iron 108 ug/dL (37-170)
[2023-06-07 10:57] LABS: LDL Cholesterol Direct 115 mg/dL
[2023-06-07 10:58] LABS: Percent Iron Saturation 24 % (20-50)
[2023-06-07 11:04] LABS: Free T4 Free Thyroxine 1.23 ng/mL (0.78-2.19)
[2023-06-07 11:13] LABS: Thyroid Stimulating Hormone 0.948 uIU/mL (0.465-4.680)
[2023-06-12 13:20] LABS: Red Blood Cell Folate 677 ng/mL RBC (>280)
== END 2023-06-07 09:49 | disposition home or self-care (01) ==
LOC: ANHLAB 09:50
PROVIDERS: PCP Internal Medicine; Visit Provider Internal Medicine
DX: Z00.00 Encounter for general adult medical examination without abnormal findings (principal); D64.9 Anemia, unspecified; E78.5 Hyperlipidemia, unspecified; E03.9 Hypothyroidism, unspecified; I10 Essential (primary) hypertension
CPT/HCPCS: 36415; 80053; 80061; 82607; 82747; 83540; 83550; 84439; 84443; 85025

== ENCOUNTER 2024-09-02 10:24 | Outpatient (CLI) | payer BC, SELFPAY ==
[2024-09-02 11:03] LABS: Basophils Percent Auto 0.7 % (0.2-1.2); Eosinophils Absolute Auto 0.1 K/mm3 (0-0.3); Hematocrit 39.3 % (37.0-47.0); Hemoglobin 12.9 g/dL (12.0-15.0); Immature Granulocyte Absolute 0.01 K/mm3 (0.00-0.031); Immature Granulocyte Percent A 0.2 % (0-0.5); Lymphocytes Absolute Auto 1.03 K/mm3 (0.9-3.2); Lymphocytes Percent Auto 25.2 % (18.3-44.2); Mean Corpuscular HGB Conc 32.8 g/dl (32-36); Mean Corpuscular Hemoglobin 30.7 pg (26-34); Mean Corpuscular Volume 93.6 fl (80-100); Mean Platelet Volume 9.2 fl (7.4-10.4); Monocytes Absolute Auto 0.4 K/mm3 (0.1-0.6); Monocytes Percent Auto 9.3 % (2.6-8.5); Neutrophils Absolute Auto 2.6 K/mm3 (1.3-6.7); Neutrophils Percent Auto 62.6 % (45.5-73.1); Platelet Count Result 260 k/mm3 (150-375); Red Cell Distribution Width 12.1 % (11.5-14.5); White Blood Count 4.1 K/mm3 (4.5-10.0)
[2024-09-02 11:17] LABS: Alanine Aminotransferase 51 U/L (6-35); Albumin Level 4.8 g/dL (3.5-5.1); Alkaline Phosphatase 68 U/L (38-126); Anion Gap 10 mmol/L (4-12); Aspartate Amino Transferase 41 U/L (14-36); Bilirubin,Total 0.6 mg/dL (0.2-1.3); Blood Urea Nitrogen 18 mg/dL (7-17); Calcium 9.3 mg/dL (8.4-10.2); Carbon Dioxide 27 mmol/L (22-30); Chloride 99 mmol/L (98-107); Cholesterol 187 mg/dL (0-200); Estimated Glomerular Filt Rate > 60; Glucose 96 mg/dL (65-110); HDL Direct 75 mg/dL; Potassium 4.3 mmol/L (3.4-5.0); Sodium 136 mmol/L (137-145); Triglycerides 134 mg/dL (<150)
[2024-09-02 11:29] LABS: LDL Cholesterol Direct 71 mg/dL
== END 2024-09-02 10:25 | disposition home or self-care (01) ==
LOC: ANHLAB 10:26
PROVIDERS: PCP Internal Medicine; Visit Provider Internal Medicine
DX: Z00.00 Encounter for general adult medical examination without abnormal findings (principal)
CPT/HCPCS: 36415; 80053; 80061; 84443; 85025

== ENCOUNTER 2025-03-11 08:45 | Outpatient (CLI) | payer BC, SELFPAY ==
--- OUTSIDE RECORDS SUMMARY | 2025-03-11 09:00 | XMS_ITS | Referral Summary ---
Author Organization [facility] Address [address] [place] [id number] Care Team Providers Care Division Roadmaster Name Role Phone Jac Santiago MD Primary Care Provider +1- [phone] Allergies No known active allergies Medications Euthyrox 50 mcg tablet Take 50 mcg by mouth daily 12/31/2021 Active lisinopriL (PRINIVIL,ZESTRI L) 10 mg tablet Take 10 mg by mouth daily 12/12/2021 Active Active Problems Problem Noted Date Diagnosed Date Fall, initial encounter 02/11/2022 Olecranon fracture, left, closed, initial encoun ter 02/10/2022 Overview (02/11/2022): Added automatically from request for surgery [id number] Immunizations Immunization Administration Dates Next Due Influenza, Trivalent, IM (MDV) 12/11/2012 Tdap 02/08/2019 Social History Tobacco Use Types Packs/Day Years Used Date Smoking Tobacco: Never AUDIT-C Answer Date Recorded Q1: How often do you have a drink containing alc ohol? 2-3 times a week 02/11/2022 Q2: How many drinks containi ng alcohol do you have on a typical day when you are drinking? 1 or 2 02/11/2022 Q3: How often do you have si x or more drinks on one occasion? 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 Gender Identity Not on file Sexual Orientation Not on file Last Filed Vital Signs Vital Sign Reading Time Taken Comments Blood Pressure 126/76 02/13/2022 10:35 AM CDT Pulse 105 02/13/2022 10:35 AM CDT Temperature 36.8 C (98.2 F) 02/13/2022 8:38 AM CDT Respiratory Rate 18 02/13/2022 8:3 8 AM CDT Oxygen Saturation 97% 02/13/2022 10: 35 AM CDT Inhaled Oxygen Concentration - - Weight 82.9 kg (182 lb 12.2 oz) 02/11/2022 5:55 AM CDT Height 175.3 cm (5' 9 ) 02/11/2022 5:55 AM CDT Body Mass Index 26.99 02/11/2022 5:55 AM CDT Plan of Treatment Not on file Medical Devices Implanted Type Area Armature Balancer Device Identifier Shelf Expiration Date Model / Serial / Lot Seemage 496-H222 Evolve 22mm Modular Elbow 2+ Mm Head Radial Proline Sterile - [id number] Implanted:Qty: 1 on 02/11/2022 by Chad Zuñiga MD at [facility] Left: Elbow Se[employer] [id number] 07/08/2027 [id number] / / [id number] Seemage [id number] Evolve 7.5mm 23mm Modular Head System Elbow Standard Stem Radial - [id number] Implanted:Qty: 1 on 02/11/2022 by Chad Zuñiga MD at [facility] Left: Elbow [employer] [id number] 06/25/2029 [id number] / / [id number] [employer] rtho [id number] Evos 3.5mm 110mm Self Tap Cortex Screw Bone Sterile - [id number] Implanted:Qty: 1 on 02/11/2022 by Chad Zuñiga MD at [facility] Left: Elbow [employer]o [id number] 06/06/2030 [id number] / / [id number] [employer] r[employer]o [id number] Evos Mini 140mm 20 Hole Flex Low Profile Variable Angle Small - [id number] Implanted:Qty: 1 on 02/11/2022 by Chad Zuñiga MD at [facility] Left: Elbow [employer]o [id number] / / [employer]o [id number] 2.7mm 4.5mm 48mm Self Retaining Screwdriver Self Tap Flat Head - [id number] Implanted:Qty: 1 on 02/11/2022 by Chad Zuñiga MD at [facility] Left: Elbow [employer] [id number] / / [employer] [id number] 2.7mm 4.5mm 30mm Self Retaining Screwdriver Self Tap Flat Head - [id number] Implanted:Qty: 1 on 02/11/2022 by Chad Zuñiga MD at [facility] Left: Elbow [employer] [id number] / / [employer] [id number] 2.7mm 4.5mm 22mm Self Retaining Screwdriver Self Tap Flat Head - [id number] Implanted:Qty: 2 on 02/11/2022 by Chad Zuñiga MD at [facility] Left: Elbow [employer] [id number] / / [employer] [id number] 2.7mm 4.5mm 15mm Self Retaining Screwdriver Self Tap Flat Head - [id number] Implanted:Qty: 1 on 02/11/2022 by Chad Zuñiga MD at [facility] Left: Elbow [employer] [id number] / / Insurance [employer] [facility] Advance Directives For more information, please contact: [phone] * Full Code (Latest Code Status on File) Date Activated Date Inactivated Comments 02/11/2022 5:38 AM 02/13/2022 3:37 PM Care Teams Division Roadmaster Relationship Specialty Start Date End Date Jac Santiago MD [address] [facility] [address] [place] [address] PCP - General Internal Medicine 02/10/22
--- OUTSIDE RECORDS SUMMARY | 2025-03-11 09:00 | XMS_ITS | Clinical Summary ---
Author Organization [facility] Address [address] [place] [phone] Care Team Providers Care Naval Architect Name Role Phone Jac Santiago MD Primary Care Provider +1- [phone] Allergies No known active allergies Medications Euthyrox 50 mcg tablet Take 50 mcg by mouth daily 12/31/2021 Active lisinopriL (PRINIVIL,ZESTRI L) 10 mg tablet Take 10 mg by mouth daily 12/12/2021 Active Active Problems Problem Noted Date Diagnosed Date Fall, initial encounter 02/11/2022 Olecranon fracture, left, closed, initial encoun ter 02/10/2022 Overview (02/11/2022): Added automatically from request for surgery [id number] Immunizations Immunization Administration Dates Next Due Influenza, Trivalent, IM (MDV) 12/11/2012 Tdap 02/08/2019 Surgical History Surgery Date Site/Laterality Comments COLONOSCOPY x2 HYSTERECTOMY TUBAL LIGATION Medical History Medical History Date Comments Hypertension Hypothyroidism Hyperlipidemia GERD (gastroesophageal reflux disease) Social History Tobacco Use Types Packs/Day Years [...] on file 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 Gender Identity Not on file Sexual Orientation Not on file Obstetrics History Last Filed Vital Signs Vital Sign Reading Time Taken Comments Blood Pressure 126/76 02/13/2022 10:35 AM CDT Pulse 105 02/13/2022 10:35 AM CDT Temperature 36.8 C (98.2 F) 02/13/2022 8:38 AM CDT Respiratory Rate 18 02/13/2022 8:38 AM CDT Oxygen Saturation 97% 02/13/2022 10: 35 AM CDT Inhaled Oxygen Concentration - - Weight 82.9 kg (182 lb 12.2 oz) 02/11/2022 5:55 AM CDT Height 175.3 cm (5' 9 ) 02/11/2022 5:55 AM CDT Body Mass Index 26.99 02/11/2022 5:55 AM CDT Plan of Treatment Health Maintenance Due Date Last Done Comments Breast Cancer Screening-Mammogram 1960 Colon Cancer Screening-Colonoscopy 1960 Depression Screening 1960 Hepatitis C Screening 1960 Hepatitis B Screening 1979 Regular Well Visit/Exam 18-64 1979 Zoster Vaccine (1 of 2) 2011 Covid-19 Vaccine (4 - 2023-2 5 season) 2024 09/07/2021, 12/11/2020, 11/20/2020 Influenza Vaccine (Season Ended) 2025 12/11/2012 DTaP/Tdap/Td Vaccine (2 - Td or Tdap) 02/08/2029 02/08/2019 Pneumococcal vaccine <65 Aged Out No longer eligible based on patient's age to complete this topic Medical Devices Implanted Type Area Senior Quality Analyst Device Identifier Shelf Expiration Date Model / Serial / Lot [employer] Inc [id number] Evolve 22mm Modular Elbow 2+ Mm Head Radial Proline Sterile - [id number] Implanted:Qty: 1 on 02/11/2022 by Chad Zuñiga MD at [facility] Left: Elbow [employer] Inc [id number] 07/08/2027 [id number] / / [id number] [id number] Evolve 7.5mm 23mm Modular Head System Elbow Standard Stem Radial - [id number] Implanted:Qty: 1 on 02/11/2022 by Chad Zuñiga MD at [facility] Left: Elbow [employer] Inc [id number] 06/25/2029 [id number] / / [id number] [employer] [id number] Evos 3.5mm 110mm Self Tap Cortex Screw Bone Sterile - [id number] Implanted:Qty: 1 on 02/11/2022 by Chad Zuñiga MD at [facility] Left: Elbow [employer] [id number] 06/06/2030 [id number] / / [id number] [employer] [id number] Evos Mini 140mm 20 Hole Flex Low Profile Variable Angle Small - [id number] Implanted:Qty: 1 on 02/11/2022 by Chad Zuñiga MD at [facility] Left: Elbow [employer] [id number] / / [employer] [id number] 2.7mm 4.5mm 48mm Self Retaining Screwdriver Self Tap Flat Head - [id number] Implanted:Qty: 1 on 02/11/2022 by Chad Zuñiga MD at [facility] Left: Elbow [employer] [id number] / / [employer] [id number] 2.7mm 4.5mm 30mm Self Retaining Screwdriver Self Tap Flat Head - [id number] Implanted:Qty: 1 on 02/11/2022 by Chad Zuñiga MD at [facility] Left: Elbow [employer] [id number] / / [employer] [id number] 2.7mm 4.5mm 22mm Self Retaining Screwdriver Self Tap Flat Head - [id number] Implanted:Qty: 2 on 02/11/2022 by Chad Zuñiga MD at [facility] Left: Elbow [employer] [id number] / / [employer] [id number] 2.7mm 4.5mm 15mm Self Retaining Screwdriver Self Tap Flat Head - [id number] Implanted:Qty: 1 on 02/11/2022 by Chad Zuñiga MD at [facility] Left: Elbow [employer] [id number] / / Insurance [employer] Advance Directives For more information, please contact: [phone] * Full Code (Latest Code Status on File) Date Activated Date Inactivated Comments 02/11/2022 5:38 AM 02/13/2022 3:37 PM Care Teams Naval Architect Relationship Specialty Start Date End Date Jac Santiago MD [address] [facility] [address] [place] [address] PCP - General Internal Medicine 02/10/22
[2025-03-11 09:49] LABS: Basophils Absolute Auto 0.1 K/mm3 (0.0-0.1); Basophils Percent Auto 1.3 % (0.2-1.2); Eosinophils Absolute Auto 0.1 K/mm3 (0-0.3); Eosinophils Percent Auto 2.9 % (0-4.4); Hematocrit 39.8 % (37.0-47.0); Hemoglobin 12.7 g/dL (12.0-15.0); Immature Granulocyte Absolute 0.01 K/mm3 (0.00-0.031); Immature Granulocyte Percent A 0.3 % (0-0.5); Lymphocytes Absolute Auto 1.18 K/mm3 (0.9-3.2); Lymphocytes Percent Auto 30.9 % (18.3-44.2); Mean Corpuscular HGB Conc 31.9 g/dl (32-36); Mean Corpuscular Hemoglobin 30.1 pg (26-34); Mean Corpuscular Volume 94.3 fl (80-100); Mean Platelet Volume 9.3 fl (7.4-10.4); Monocytes Absolute Auto 0.4 K/mm3 (0.1-0.6); Monocytes Percent Auto 10.5 % (2.6-8.5); Neutrophils Absolute Auto 2.1 K/mm3 (1.3-6.7); Neutrophils Percent Auto 54.1 % (45.5-73.1); Platelet Count Result 295 k/mm3 (150-375); Red Blood Count 4.22 M/mm3 (4.2-5.4); Red Cell Distribution Width 12.7 % (11.5-14.5); White Blood Count 3.8 K/mm3 (4.5-10.0)
[2025-03-11 10:03] LABS: Alanine Aminotransferase 59 U/L (6-35); Albumin Level 4.8 g/dL (3.5-5.1); Alkaline Phosphatase 61 U/L (38-126); Anion Gap 12 mmol/L (4-12); Aspartate Amino Transferase 37 U/L (14-36); Bilirubin,Total 0.6 mg/dL (0.2-1.3); Blood Urea Nitrogen 19 mg/dL (7-17); Calcium 9.3 mg/dL (8.4-10.2); Carbon Dioxide 27 mmol/L (22-30); Chloride 99 mmol/L (98-107); Cholesterol 194 mg/dL (0-200); Estimated Glomerular Filt Rate > 60; Glucose 94 mg/dL (65-110); HDL Direct 83 mg/dL; Potassium 3.9 mmol/L (3.4-5.0); Sodium 138 mmol/L (137-145); Triglycerides 115 mg/dL (<150)
[2025-03-11 10:15] LABS: LDL Cholesterol Direct 73 mg/dL
== END 2025-03-11 08:46 | disposition home or self-care (01) ==
PROVIDERS: PCP Internal Medicine; Visit Provider Internal Medicine
DX: E03.9 Hypothyroidism, unspecified (principal); D72.819 Decreased white blood cell count, unspecified; E78.5 Hyperlipidemia, unspecified; I10 Essential (primary) hypertension
CPT/HCPCS: 36415; 80053; 80061; 84443; 85025